=== PATIENT | male | born 1980 | race Caucasian/White ===

== ENCOUNTER 2019-01-21 08:02 | Emergency (ER) | payer BC, MEDICAID ==
[2019-01-21 08:21] VITALS: BP 120/70; PULSE 72
--- NOTE | 2019-01-21 09:23 | EDM.PDOC ---
ED HPI GENERAL MEDICAL PROBLEM - General Chief Complaint: Respiratory Problem Stated Complaint: SOB/RESPIRATORY ISSUES Time Seen by Provider: 01/21/19 09:22 - History of Present Illness INITIAL COMMENTS - FREE TEXT/NARRATIVE: 38-year-old male presents emergency room with chest discomfort and worsening cough. This started 5 or 6 days ago. He developed a productive cough bringing up green off-color sputum. Today he noticed a few bloody specks in it. He has night sweats. Isn't aware of any daytime fevers. He has not had a history of pulmonary disease. No history of heart problems. He has some left-sided chest discomfort worsened with the cough. He has a significant family history of her father who had an [place] in his mid-40s. The patient has regular doctor he has no history of diabetes Left Chest Pain Score (Numeric/FACES): 7 - Related Data Allergies Allergy/AdvReac Type Severity Reaction Status Date / Time No Known Allergies Allergy Verified 01/21/19 08:17 Home Meds: Home Meds Levothyroxine 150 mcg PO DAILY 12/18/14 [History] Lisinopril/Hydrochlorothiazide [Lisinopril-Hctz 20-12.5 mg Tab] 1 each PO DAILY 12/18/14 [History] Azithromycin [Zithromax] 250 mg PO DAILY #6 tab 01/21/19 [Rx] FLUoxetine [PROzac] 10 mg PO DAILY 01/21/19 [History] Past Medical History HEENT History: Reports: Hard of Hearing Cardiovascular History: Reports: High Cholesterol Other Musculoskeletal History: shoulder injury Psychiatric History: Reports: Anxiety Endocrine/Metabolic History: Reports: Hypothyroidism - Infectious Disease History Infectious Disease History: Reports: Chicken Pox - Past Surgical History Endocrine Surgical History: Reports: Thyroidectomy Musculoskeletal Surgical History: Reports: Shoulder Surgery, Other (See Below) Other Musculoskeletal Surgeries/Procedures:: bilateral shoulder surgeries Social & Family History - Tobacco Use Smoking Status *Q: Never Smoker - Caffeine Use Caffeine Use: Reports: Soda - Recreational Drug Use Recreational Drug Use: No ED ROS GENERAL - Review of Systems Review Of Systems: See Below Constitutional: Reports: Chills, Night Sweats, Diaphoresis. Denies: Fever HEENT: Reports: No Symptoms Respiratory: Reports: Shortness of Breath, Cough, Sputum. Denies: Wheezing Cardiovascular: Reports: Chest Pain. Denies: Dyspnea on Exertion Endocrine: Reports: No Symptoms GI/Abdominal: Reports: No Symptoms : Reports: No Symptoms Musculoskeletal: Reports: No Symptoms Skin: Reports: No Symptoms Neurological: Reports: No Symptoms ED EXAM, GENERAL - Physical Exam Exam: See Below Exam Limited By: No Limitations General Appearance: Alert, No Apparent Distress Ears: Normal External Exam, Normal Canal, Hearing Grossly Normal, Normal TMs Nose: Normal Inspection, Normal Mucosa, No Blood Throat/Mouth: Normal Inspection, Normal Lips, Normal Teeth, Normal Gums, No Airway Compromise Head: Atraumatic, Normocephalic Neck: Normal Inspection, Supple, Non-Tender, Full Range of Motion. No: Lymphadenopathy (L), Lymphadenopathy (R) Respiratory/Chest: No Respiratory Distress, Lungs Clear, Crackles (Fine crackles noted in the left base and mid chest area). No: Decreased Breath Sounds, Rhonchi, Wheezing, Pleural Rub Cardiovascular: Normal Peripheral Pulses, Regular Rate, Rhythm, No Edema GI/Abdominal: Normal Bowel Sounds, Soft, Non-Tender, Other (She has significant obesity) Extremities: Non-Tender, No Pedal Edema Neurological: Alert, Oriented, Normal Cognition Psychiatric: Normal Affect, Normal Mood Lymphatic: No Adenopathy Course - Vital Signs Last Recorded V/S: Last Vital Signs Temp 36.1 C 01/21/19 08:18 Pulse 72 01/21/19 08:18 Resp 20 01/21/19 08:18 BP 120/70 01/21/19 08:18 Pulse Ox 99 01/21/19 08:18 - Orders/Labs/Meds Orders: Active Orders 24 hr Category Date Time Status EKG Documentation Completion [RC] STAT Care 01/21/19 09:28 Active Labs: Laboratory Tests 01/21/19 01/21/19 01/21/19 Range/Units 09:40 09:40 09:40 WBC 4.81 (4.23-9.07) K/mm3 RBC 5.07 (4.63-6.08) M/mm3 Hgb 14.2 (13.7-17.5) gm/dl Hct 41.9 (40.1-51.0) % MCV 82.6 (79.0-92.2) fl MCH 28.0 (25.7-32.2) pg MCHC 33.9 (32.2-35.5) g/dl RDW Std Deviation 42.3 (35.1-43.9) fL Plt Count 265 (163-337) K/mm3 MPV 8.5 L (9.4-12.3) fl Neutrophils % (Manual) 53 (40-60) % Band Neutrophils % 1 (0-10) % Lymphocytes % (Manual) 36 (20-40) % Atypical Lymphs % 0 % Monocytes % (Manual) 4 (2-10) % Eosinophils % (Manual) 6 (0.8-7.0) % Basophils % (Manual) 0 L (0.2-1.2) Platelet Estimate Adequate RBC Morph Comment Normal D-Dimer, Quantitative 0.37 (0.19-0.50) mg/L Sodium 139 (136-145) mEq/L Potassium 4.8 (3.5-5.1) mEq/L Chloride 104 (98-107) mEq/L Carbon Dioxide 26 (21-32) mEq/L Anion Gap 13.8 (5-15) BUN 27 H (7-18) mg/dL Creatinine 1.5 H (0.7-1.3) mg/dL Est Cr Clr Drug Dosing 74.72 mL/min Estimated GFR (MDRD) 52 (>60) mL/min BUN/Creatinine Ratio 18.0 (14-18) Glucose 128 H (74-106) mg/dL Calcium 9.2 (8.5-10.1) mg/dL Total Bilirubin 0.3 (0.2-1.0) mg/dL AST 49 H (15-37) U/L ALT 44 (16-63) U/L Alkaline Phosphatase 54 (46-116) U/L Troponin I < 0.017 (0.00-0.056) ng/mL Total Protein 7.7 (6.4-8.2) g/dl Albumin 4.1 (3.4-5.0) g/dl Globulin 3.6 gm/dL Albumin/Globulin Ratio 1.1 (1-2) - Re-Assessments/Exams Free Text/Narrative Re-Assessment/Exam: 01/21/19 12:03 Return evaluation is unrevealing other than he is a little dry discussed water intake with him. Chest x-ray shows no acute changes however with his crackles in the left base and mid chest region I'm suspicious for an early pneumonia patient will be started on Zithromax and he'll be started on albuterol MDI inhaler 2 puffs every 4 hours while awake Departure - Departure Time of Disposition: 12:04 Disposition: Home, Self-Care 01 Clinical Impression: Bronchitis, Cough productive of purulent sputum - Discharge Information Prescriptions: Azithromycin [Zithromax] 250 mg PO DAILY #6 tab Referrals: PCP,Not In Area [Primary Care Provider] - Forms: ED Department Discharge Additional Instructions: Return to the emergency room with any questions problems or worsening symptoms. I am suspicious that you have an early pneumonia or have bronchitis you have been started on Zithromax, this is an antibiotic take 2 tablets today then 1 daily until all gone you'll take this for a total of 5 days. You should be given an inhaler before you leave the emergency department take 2 puffs every 4 hours while awake. Make an appointment with your regular provider for recheck at the end of this week. Sepsis Event Note - Evaluation Sepsis Screening Result: No Definite Risk - Focused Exam Vital Signs: Vital Signs Temp Pulse Resp BP Pulse Ox 01/21/19 08:18 36.1 C 72 20 120/70 99 Date Exam was Performed: 01/21/19 Time Exam was Performed: 12:03 - My Orders Last 24 Hours: My Active Orders 01/21/19 09:28 EKG Documentation Completion [RC] STAT - Assessment/Plan Last 24 Hours: My Active Orders 01/21/19 09:28 EKG Documentation Completion [RC] STAT
--- NOTE | 2019-01-21 11:41 | CR ---
Chest: PA and lateral views of the chest were obtained. Comparison: No prior chest x-ray. Heart size and mediastinum are normal. Lungs are clear. Bony structures are unremarkable. Impression: 1. Nothing acute is seen on two-view chest x-ray. Diagnostic code #1 This report was dictated in [place] Standard Time
[2019-01-21] MEDS ORDERED: Albuterol 6.7 GM Inhaler INH ONE (12:09)
== END 2019-01-21 13:49 | disposition home or self-care (01) ==
LOC: JD.ED 08:02
DX: J40 Bronchitis, not specified as acute or chronic (principal); E03.9 Hypothyroidism, unspecified; E78.00 Pure hypercholesterolemia, unspecified; F41.9 Anxiety disorder, unspecified; Z79.899 Other long term (current) drug therapy
CPT/HCPCS: 36415; 71046; 80053; 84484; 85007; 85027; 85379; 93005; 94640; 99285; A9270; 93010; 99283

== ENCOUNTER 2024-11-25 16:07 | Emergency (ER) | payer BC, MEDICAID ==
[2024-11-25] MEDS ORDERED: Sodium Chloride 0.9% 10 ML Syringe FLUSH PRN (16:55)
[2024-11-25 17:20] LABS: A/G RATIO 0.7 (1-2); ALANINE AMINOTRANSFERASE,ALT 69 U/L (16-63); ASPARTATE AMNIOTRANSFERASE,AST 71 U/L (15-37); BILIRUBIN TOTAL 0.6 mg/dL (0.2-1.0); BLOOD UREA NITROGEN,BUN 25 mg/dL (7-18); CARBON DIOXIDE,CO2 29 mEq/L (21-32); CHLORIDE,CL 103 mEq/L (98-107); CREATINE KINASE,CK 266 U/L (39-308); CREATININE 1.4 mg/dL (0.7-1.3); EST CRCL DRUG DOSING (CG) 75.30 mL/min; ESTIMATED GFR 63 mL/min (>60); GLUCOSE RANDOM 93 mg/dL (70-99); POTASSIUM,K 4.5 mEq/L (3.5-5.1); PROTEIN TOTAL,TP 7.5 g/dl (6.4-8.2); SODIUM,NA 139 mEq/L (136-145)
[2024-11-25 18:00] LABS: TSH < 0.007 uIU/mL (0.358-3.74)
[2024-11-25 18:23] LABS: T4 FREE 0.60 ng/dL (0.76-1.46)
[2024-11-25 19:02] VITALS: BP 141/88; PULSE 99
== END 2024-11-25 18:53 | disposition home or self-care (01) ==
LOC: JD.ED 16:07
DX: R25.2 Cramp and spasm (principal); R94.5 Abnormal results of liver function studies; R79.89 Other specified abnormal findings of blood chemistry; I10 Essential (primary) hypertension; E11.9 Type 2 diabetes mellitus without complications; E03.9 Hypothyroidism, unspecified; F17.200 Nicotine dependence, unspecified, uncomplicated; Z79.890 Hormone replacement therapy
CPT/HCPCS: 36415; 80053; 82550; 83735; 84439; 84443; 96360; 99283-25; J7030